=== PATIENT | male | born 1955 | race Caucasian/White ===

== ENCOUNTER 2024-12-14 12:56 | Emergency (ER) | payer MEDICARE, MEDICAID, SELFPAY ==
[2024-12-14 12:57] VITALS: BP 113/67; PULSE 84; TEMP 38.3; O2SAT 95; BMI 21.5
--- NOTE | 2024-12-14 13:04 | XR_ITS ---
[address] [address] Patient Name: TRACEE GU MRN: [id number] date: 1955 Sex: M Assigned Patient Location: ER Current Patient Location: ED.MAIN Accession/Order Number: [id number] Exam Date: 12/14/2024 14:49 Report Date: 12/14/2024 14:50 At the request of: CRYSTAL WADE MD Procedure: XR elbow RT 2V 3 views right elbow INDICATION: Fall COMPARISON: Humerus x-ray 12/14/2024 FINDINGS/impression: Moderate to severe degenerative changes. No evidence of acute osseous abnormality. Mild soft tissue swelling. Impression dictated by: Damian Saldana M.D. 12/14/2024 2:50 PM Dictation Location: [place] [address] Electronically authenticated by: [id number] Y Date: 12/14/2024 14:50
--- NOTE | 2024-12-14 13:04 | XR_ITS ---
The [place] [id number] Patient Name: TRACEE GU MRN: [id number] date: 1955 Sex: M Assigned Patient Location: ER Current Patient Location: ED.MAIN Accession/Order Number: [id number] Exam Date: 12/14/2024 14:50 Report Date: 12/14/2024 14:51 At the request of: CRYSTAL WADE MD Procedure: XR forearm RT 2V Right forearm 2 views INDICATION: Fall COMPARISON: Forearm x-ray 06/28/2021 Findings/impression: No fractures or dislocation.. Degenerative changes at the level of the elbow and wrist noted. No radiopaque foreign body. Impression dictated by: Damian Saldana M.D. 12/14/2024 2:51 PM Dictation Location: [place] [address] Electronically authenticated by: [id number] Y Date: 12/14/2024 14:51
--- NOTE | 2024-12-14 13:04 | CT_ITS ---
The [address] [address] Patient Name: TRACEE GU MRN: [id number] date: 1955 Sex: M Assigned Patient Location: ER Current Patient Location: [facility] Accession/Order Number: [id number] Exam Date: 12/14/2024 14:52 Report Date: 12/14/2024 14:54 At the request of: CRYSTAL WADE MD Procedure: CT head/brain wo con CT BRAIN WITHOUT CONTRAST: CLINICAL HISTORY: fall COMPARISON: CT head 05/07/2020 TECHNIQUE: Contiguous axial unenhanced images were obtained through the brain. This CT exam was performed using one or more following dose reduction techniques: Automated exposure control, adjustment of the mA and/or kV according to patient size, or use of iterative reconstruction technique. FINDINGS: There is no evidence of midline shift, intra or extra-axial fluid collection, hemorrhage or CT evidence acute large vascular distribution stroke. Central involutional changes and esol-qs-pouuwbxy chronic small vessel ischemic disease is. Vascular calcifications. Anterior nasal bone lucencies likely chronic. Visualized intraorbital contents appear unremarkable. Visualized paranasal sinuses are clear. The surrounding soft tissues are normal. CT/CT head/brain wo con IMPRESSION: [id number] CHRONIC SMALL VESSEL CHANGES AND CENTRAL INVOLUTIONAL CHANGE. NO ACUTE INTRACRANIAL ABNORMALITY. Impression dictated by: Damian Saldana M.D. 12/14/2024 2:54 PM Dictation Location: [place] [address] Electronically authenticated by: [id number] Y Date: 12/14/2024 14:54
--- NOTE | 2024-12-14 13:04 | XR_ITS ---
The [address] [address] Patient Name: TRACEE GU MRN: [id number] date: 1955 Sex: M Assigned Patient Location: ER Current Patient Location: ED.MAIN Accession/Order Number: [id number] Exam Date: 12/14/2024 14:47 Report Date: 12/14/2024 14:49 At the request of: CRYSTAL WADE MD Procedure: XR humerus RT Right shoulder 3 views, humerus, 2 views INDICATION: Fall XR/XR shoulder RT min 2V IMPRESSION: None FINDINGS: Prior ORIF mid diaphysis humerus. Moderate severe degenerative changes glenohumeral joint. Calcific densities greater tuberosity may suggest hydroxyapatite deposition. Moderate AC joint degenerative change. Right lung apex clear. IMPRESSION: Moderate degenerate changes right shoulder. Prior ORIF right humerus appears intact. No acute osseous abnormality. Please see separate elbow dictation. Impression dictated by: Damian Saldana M.D. 12/14/2024 2:49 PM Dictation Location: [place] [address] Electronically authenticated by: [id number] Y Date: 12/14/2024 14:49
--- NOTE | 2024-12-14 13:04 | CT_ITS ---
The [address] [address] Patient Name: TRACEE GU MRN: [id number] date: 1955 Sex: M Assigned Patient Location: ER Current Patient Location: ED.MAIN Accession/Order Number: [id number] Exam Date: 12/14/2024 14:55 Report Date: 12/14/2024 14:57 At the request of: CRYSTAL WADE MD Procedure: CT cervical spine wo con CT CERVICAL SPINE WITHOUT CONTRAST: CLINICAL HISTORY: fall COMPARISON: None TECHNIQUE: Contiguous axial unenhanced images were obtained through the cervical spine. This CT exam was performed using one or more following dose reduction techniques: Automated exposure control, adjustment of the mA and/or kV according to patient size, or use of iterative reconstruction technique. FINDINGS: The entirety of T1 is not evaluated. Moderate severe degenerative disc space narrowing and byoz-ow-vudshvze spurring and osteophytosis C5-C7. Wvem-gi-aynjrifs degenerative changes involving the remaining disc spaces. There is moderate severe facet arthropathy identified C3-C5. Findings are greatest left C4-C5. No prevertebral soft tissue swelling. Upper lungs grossly clear. CT/CT cervical spine wo con IMPRESSION: Negative acute fracture or malalignment from C1 through C7. Multilevel degenerative change Impression dictated by: Damian Saldana M.D. 12/14/2024 2:57 PM Dictation Location: [place] [address] Electronically authenticated by: [id number] Y Date: 12/14/2024 14:57
--- NOTE | 2024-12-14 13:04 | XR_ITS ---
[place] [id number] Patient Name: TRACEE GU MRN: [id number] date: 1955 Sex: M Assigned Patient Location: ER Current Patient Location: ED.MAIN Accession/Order Number: [id number] Exam Date: 12/14/2024 14:47 Report Date: 12/14/2024 14:49 At the request of: CRYSTAL WADE MD Procedure: XR humerus RT Right shoulder 3 views, humerus, 2 views INDICATION: Fall XR/XR humerus RT IMPRESSION: None FINDINGS: Prior ORIF mid diaphysis humerus. Moderate severe degenerative changes glenohumeral joint. Calcific densities greater tuberosity may suggest hydroxyapatite deposition. Moderate AC joint degenerative change. Right lung apex clear. IMPRESSION: Moderate degenerate changes right shoulder. Prior ORIF right humerus appears intact. No acute osseous abnormality. Please see separate elbow dictation. Impression dictated by: Damian Saldana M.D. 12/14/2024 2:49 PM Dictation Location: [place] [address] Electronically authenticated by: [id number] Y Date: 12/14/2024 14:49
--- OUTSIDE RECORDS SUMMARY | 2024-12-14 13:05 | XMS_ITS | Encounter Summary ---
Author Organization [facility] Address [id number] [address] [place] [address] Care Team Providers Care Car Shifter Name Role Phone LoreRaghav rueda Primary Care Provider [phone] Encounter Details Date Type Department Care Team (Late st Contact Info) Description 02/01/2024 Orders Only [facility] [address] [place] [address] Kelle Knight RN Social History Tobacco Use Types Packs/Day Years Used Date Smoking Tobacco: Former Cigarettes 1 4 Smokeless Tobacco: Never Alcohol Use Standard Drinks/Week Comments Not Currently 0 (1 standard drink = 0.6 oz pur e alcohol) alcoholic C Utilities Answer Date Recorded In the past 12 months has [employer] electric, gas, oil, or water [employer] threatened to shut off services in your home? No 10/12/2023 Social Connection and Isolat ion Panel [NHANES] Answer Date Recorded In a typical week, how many times do you talk on the phone with family, friends, or neighbors? Never 10/10/2023 How often do you get togethe r with friends or relatives? More than three times a week 10/10/2023 How often do you attend chur ch or hoahaoism services? More than 4 times per year 10/10/2023 Do you belong to any clubs o r organizations such as bahai groups, unions, fraternal or athletic groups, or school groups? No 10/10/2023 How often do you attend meet ings of the clubs or organizations you belong to? Never 10/10/2023 Are you , , di vorced, , never , or living with a partner? 10/10/2023 AUDIT-C Answer Date Recorded Q1: How often do you have a drink containing alcohol? Never 10/10/2023 Q2: How many drinks containi ng alcohol do you have on a typical day when you are drinking? Patient does not drink Q3: How often do you have si x or more drinks on one occasion? Never 10/10/2023 Overall Financial Resource Strain (CARDIA) Answe r Date Recorded How hard is it for you to pa y for the very basics like food, housing, medical care, and heating? Not hard at all 10/10/2023 PHQ-2 Answer Date Recorded Total Score 1 10/10/2023 [facility] - Occupational Stress Questionnaire Answer Date Recorded Do you feel stress - tense, restless, nervous, or anxious, or unable to sleep at night because your mind is troubled all the time - these days? Not at all 10/10/2023 Exercise Vital Sign Answer Date Recorde d On average, how many days pe r week do you engage in moderate to strenuous exercise (like a brisk walk)? 5 days 10/10/2023 On average, how many minutes do you engage in exercise at this level? 30 min 10/10/2023 PRAPARE - Transportation Answer Date Re corded In the past 12 months, has l ack of transportation kept you from medical appointments or from getting medications? No 09/26 In the past 12 months, has l ack of transportation kept you from meetings, work, or from getting things needed for daily living? No 10/12/2023 Housing Instability Answer Date Recorde d Are you worried or concerned that in the next two months you may not have stable housing that you own, rent or stay in as a part of a household? No 10/12/2023 Childcare Answer Date Recorded Do problems getting child ca re make it difficult for you to work or study? No 10/10/2023 Employment Answer Date Recorded Do you need help finding a [facility] and/or a training program? No 10/10/2023 Hunger Screening Answer Date Recorded Within the past 12 months we worried whether our food would run out before we got money to buy more. Never True 10/25/2023 Within the past 12 months th e food we bought just didn't last and we didn't have money to get more. Never True 10/25/2023 Purpose - Life Answer Date Recorded I have a purpose and direction in my life. Stron gly Agree 10/10/2023 Sex and Gender Information Value Date Recorded Sex Assigned at Male 10/10/2023 10:20 AM EDT Legal Sex Male 11:32 AM EDT Gender Identity Male 10/10/2023 10:20 AM EDT Sexual Orientation Straight 10/10/2023 10 :20 AM EDT documented as of this encounter Plan of Treatment Not on file documented as of this encounter Goals Goal Patient Goal Type Associated Problems Recent Progress Patient-Stated? Author RTN to [facility] Yes Monica Lee, RN Note: Evaluation of progress towards goal: RTN to [facility] documented as of this encounter Visit Diagnoses Not on filedocumented in this encounter Additional Health Concerns Assessment Noted Time PHQ-9 Depression Total Score: 1 10/10/19 10:27 AM EDT documented as of this encounter Care Teams Car Shifter Relationship Specialty Start Date End Date Raghav Dukes DO [address] [place] [address] PCP - General Family Medicine 10/05/23 documented as of this encounter
--- OUTSIDE RECORDS SUMMARY | 2024-12-14 13:05 | XMS_ITS | Clinical Summary ---
Author Organization [facility] Address [address] [place] [address] Care Team Providers Care Carton Folder Name Role Phone Evens Ross DO, Charles Lewis Primary Care Provi belen Active Problems Problem Noted Date Diagnosed Date Type II or unspecified type diabetes mellitus with neurological manifestations, uncontrolled(250.62) 02/19/2015 Neuropathy 08/15/2014 Depression 05/16/2014 PVD (peripheral vascular disease) 05/16/2014 HTN (hypertension) 05/16/2014 Social History Tobacco Use Types Packs/Day Years Used Date Smoking Tobacco: Never Assessed Sex and Gender Information Value Date Recorded Sex Assigned at Not on file Legal Sex Male 4:00 PM EDT Gender Identity Not on file Sexual Orientation Not on file Last Filed Vital Signs Vital Sign Reading Time Taken Comments Blood Pressure 102/58 10/10/2014 3:37 PM EDT Pulse 78 10/10/2014 3:37 PM EDT Temperature 36.3 C (97.4 F) 10/10/2014 3:37 PM EDT Respiratory Rate 18 10/10/2014 3:37 PM EDT Oxygen Saturation 96% 08/15/2014 3:07 PM EDT Inhaled Oxygen Concentration - - Weight - - Height - - Body Mass Index - - Plan of Treatment Not on file Insurance MEDICARE MEDICAID [place] Care Teams Carton Folder Relationship Specialty Start Date End Date Benigno Horner Jr., DO [address] [place] [id number] PCP - General Internal Medicine 10/16/13
--- OUTSIDE RECORDS SUMMARY | 2024-12-14 13:05 | XMS_ITS | Clinical Summary ---
Author Organization [employer] tem Address [facility] [id number] [address] [place] [address] Care Team Providers Care Azure Principal Solution Specialist Name Role Phone Roseline Raghav Tavera Primary Care Provider Allergies Active Allergy Reactions Criticality Noted Date Comments Bee Pollen 05/23/2022 Medications icosapent ethyL (VASCEPA) 1 gram capsule Take 2 capsules (2 g total) by mouth in the morning and 2 capsules (2 g total) in the evening. Take with meals. Active magnesium hydroxide (magnesium hydroxide) 400 mg/5 mL suspensionIndi cations:consti pation Take 30 mL by mouth every 12 (twelve) hours as needed Indications: constipation. Active ondansetron (ZOFRAN) 8 mg tablet Take by mouth every 8 (eight) hours as needed for nausea or vomiting. Active dextromethorph an-guaiFENesin (ROBITUSSIN-DM ) 10-100 mg/5 mL liquid Take 10 mL by mouth every 12 (twelve) hours as needed for cough. Active dulaglutide (TRULICITY) 0.75 mg/0.5 mL pen injectorIndica tions:type 2 diabetes mellitus Inject 2 mL (3 mg total) under the skin once a week Indications: type 2 diabetes mellitus. Inject 3mg subcutaneously in the morning every Monday Active multivit-iron- FA-calcium &mins (THERAGRAN-M) 9 mg iron-400 mcg tablet Take 1 tablet by mouth in the morning. Active aspirin 81 mg Take 1 tablet (81 mg total) by mouth in the morning. Active docusate sodium (COLACE) 100 mg capsule Take 1 capsule (100 mg total) by mouth in the morning and 1 capsule (100 mg total) before bedtime. Active melatonin (CIRCADIN) capsule Take 1 capsule (5 mg total) by mouth nightly. Active aluminum-magne sium hydroxide (MAALOX) 200-200 mg/5 mL suspension Take by mouth every 6 (six) hours as needed for heartburn. Active latanoprost (XALATAN) 0.005 % ophthalmic solution Administer 1 drop into the left eye nightly. Active empagliflozin (JARDIANCE) 25 mg tablet tablet Take 1 tablet (25 mg total) by mouth in the morning. Active gabapentin (NEURONTIN) 600 mg tablet Take 1 tablet (600 mg total) by mouth in the morning and 1 tablet (600 mg total) before bedtime. Active desvenlafaxine (PRISTIQ) 50 mg 24 hr tablet Take 1 tablet (50 mg total) by mouth in the morning. Active atorvastatin (LIPITOR) 10 mg tablet Take 1 tablet (10 mg total) by mouth in the morning. Active loperamide (IMODIUM A-D) 2 mg tablet Take 1 tablet (2 mg total) by mouth every 4 (four) hours as needed for diarrhea. Active lactulose (CHRONULAC) 10 gram/15 mL solutionIndica tions:constipa tion Take 30 mL (20 g total) by mouth in the morning. Indications: constipation. In the morning . Active lidocaine (LIDODERM) 5 % Place 1 patch on the skin daily. Remove & Discard patch within 12 hours or as directed by MD, apply to mid-back every 24 hours a needed Active olopatadine (PATADAY TWICE DAILY RELIEF) 0.1 % ophthalmic solution Administer 1 drop to both eyes in the morning and 1 drop before bedtime. Active metFORMIN (GLUCOPHAGE) 850 mg tablet Take 1 tablet (850 mg total) by mouth in the morning and 1 tablet (850 mg total) in the evening. Take with meals. Active folic acid (FOLVITE) 1 mg tablet Take 1 tablet (1 mg total) by mouth in the morning. 4 Active FREESTYLE DANA 2 READER misc 4 Active FREESTYLE DANA 2 SENSOR kit 4 Active acetaminophen (TYLENOL EXTRA STRENGTH) 500 mg tablet Take 1 tablet (500 mg total) by mouth every 6 (six) hours as needed for pain. Active Active Problems Problem Noted Date Diagnosed Date Low HDL (under 40) 09/22/2024 Other abnormalities of gait and mobility 024 Closed fracture of left hip with routine healing 10/10/2023 Degeneration of lumbar intervertebral disc 06/28 Chronic hepatitis C without hepatic coma 023 Encephalopathy, unspecified 05/23/2022 Essential hypertension, benign 05/23/2022 Cortex (cerebral) contusion, prolonged (more than 24 hours) loss of consciousness and return to pre-existing conscious level, unspecified laterality, subsequent encounter 05/23/2022 Abnormal prostate specific antigen (PSA) 017 Abnormal weight loss 06/07/2016 Alcohol abuse 06/07/2016 Chronic hepatitis 06/07/2016 Chronic pain 06/07/2016 Constipation 06/07/2016 Gastritis 06/07/2016 Headache 06/07/2016 Hyperlipidemia 06/07/2016 Hypertension associated with stage 3a chronic kidney disease due to type 2 diabetes mellitus 06/07/2016 Type 2 diabetes mellitus wit h stage 2 chronic kidney disease, without long-term current use of insulin ([facility]) 02/19/2015 Neuropathy 08/15/2014 Major depressive disorder 05/16/2014 PVD (peripheral vascular disease) 05/16/2014 Mild cognitive impairment Fatty liver Resolved Problems Problem Noted Date Diagnosed Date Resolved Date Closed left hip fracture 10/11/2023 Encounters Date Type Department Care Team Description 11/15/2024 Continuing Care [facility] - Family Medicine [address] [place] [address] Raghav Dukes DO Hypertension associated with stage 3a chronic kidney disease due to type 2 diabetes mellitus ([facility]) (Primary Dx); Degeneration of intervertebral disc of lumbar region with discogenic back pain 10/16/2024 Continuing Care [facility] - Family Medicine [address] [place] [address] Raghav Dukes DO Hypertension associated with stage 3a chronic kidney disease due to type 2 diabetes mellitus ([facility]) (Primary Dx); Chronic hepatitis C without hepatic coma ([facility]); Closed fracture of left hip with routine healing; Encephalopathy, unspecified type from Last 3 Months Immunizations No known immunizations Social History Tobacco Use Types Packs/Day Years Used Date Smoking Tobacco: Former Cigarettes 1 4 Smokeless Tobacco: Never Tobacco Cessation:Counseling Given: Not Answered Alcohol Use Standard Drinks/Week Comments Not Currently 0 (1 standard drink = 0.6 oz pur e alcohol) alcoholic [facility] Utilities Answer Date Recorded In the past 12 months has th e electric, gas, oil, or water company threatened to shut off services in your [...] 10/10/2023 How often do you attend chur or rastafarian services? More than 4 times per year 10/10/2023 Do you belong to any clubs o r organizations such as islam groups, unions, fraternal or athletic groups, or [...] Answer Date Recorded Total Score 1 10/10/2023 [facility] - Occupational Stress [...] Recorded Do you need help finding a [facility] career center and/or a training program? No 10/10/2023 Hunger Screening Answer Date Recorded Within the past 12 months we worried whether our food would run out before we got money to buy more. Never True 07/03/2024 Within the past 12 months th e food we bought just didn't last and we didn't have money to get more. Never True 07/03/2024 Purpose - Life Answer Date Recorded I have a purpose and direction in my life. Bea gly Agree 10/10/2023 Sex and Gender Information Value Date Recorded Sex Assigned at Male 10/10/2023 10:20 AM EDT Legal Sex Male 11:32 AM EDT Gender Identity Male 10/10/2023 10:20 AM EDT Sexual Orientation Straight 10/10/2023 10 :20 AM EDT Last Filed Vital Signs Vital Sign Reading Time Taken Comments Blood Pressure 107/72 11/15/2024 4:56 PM EDT Pulse 70 11/15/2024 4:56 PM EDT Temperature 37 C (98.6 F) 11/15/2024 4:56 PM EDT Respiratory Rate 18 11/15/2024 4:56 PM EDT Oxygen Saturation 98% 11/15/2024 4:56 PM EDT Inhaled Oxygen Concentration - - Weight 64.9 kg (143 lb) 11/15/2024 4:56 PM EDT Height 167.6 cm (5' 6 ) 07/03/2024 1:28 PM EST Body Mass Index 23.08 07/03/2024 1:28 PM EST Plan of Treatment Health Maintenance Due Date Last Done Comments Diabetic Ophthalmology Exam 1955 Diabetic Foot Exam 12/22/1973 DTaP,Tdap and Td Vaccines (1 - Tdap) 12/22/1974 Zoster (Shingles) Vaccine (1 of 2) 12/22/2005 Abdominal Aortic Aneurysm (A AA) Screen 12/22/2020 Fall Risk Screening 12/22/2020 COVID-19 Vaccine (7 - 2023-2 5 season) 2024 03/13/2024, 11/10/2022, 01/12/2022, Additional history exists Depression Screening 10/09/2024 10/10/2023 Influenza Vaccine 01/27/2025 03/27/2024 Tobacco Screening 07/03/2025 07/03/2024 Adult BMI Screening 11/15/2025 11/15/2024 Goals Goal Patient Goal Type Associated Problems Recent Progress Patient-Stated? Author RTN to [facility] Yes Monica Lee, RN Note: Evaluation of progress towards goal: RTN to [facility] [employer] Implanted Type Area Superintendent Distribution Device Identifier Shelf Expiration Date Model / Serial / Lot Nail Im 170mm 10mm 125d Cnn Tfn-Adv Lat Rlf Cut Ti Niobium - [id number] Implanted:Qty : 1 on 10/12/2023 by Cipriano Castillo MD at [facility] Nail Left: Femur DEPUY Watson Brown 10/26/2032 04.037.01 2S / / [id number] Blade Im Nl Au 95mm 10.35mm Tfn-Adv Hlcl Fem Prox Ti Niobium - [id number] Implanted:Qty : 1 on 10/12/2023 by Cipriano Castillo MD at [facility] Orthopedic Implant Left: Femur DEPUY Watson Brown 07/26/2033 04.038.39 5S / / [id number] Screw Bn 36mm 5mm Lck X25 Im Nl - [id number] Implanted:Qty : 1 on 10/12/2023 by Cipriano Castillo MD at [facility] Screw Left: Femur [employer] 03/28/2033 04.045.03 6S / / [id number] Insurance MEDICAID [place] [employer] MEDICARE Advance Directives Documents on File Type Date Recorded Patient E Business Project Manager Expl anation Durable Power of Drafter [employer] 11/09/2023 8:54 AM DNR Physician Order 11/09/2023 8:39 AM DNR Physician Order 10/27/2023 9:55 AM DNR Physician Order 10/26/2023 1:21 PM Durable Power of [employer] 10/26/2023 8:12 AM * Full Code (Latest Code Status on File) Date Activated Date Inactivated Comments 10/11/2023 2:54 PM 10/15/2023 6:51 PM * Full Code Date Activated Date Inactivated Comments 10/10/2023 4:17 AM 10/11/2023 2:40 PM Care Teams Azure Principal Solution Specialist Relationship Specialty Start Date End Date Raghav Dukes DO [address] [place] [address] PCP - General Family Medicine 10/05/23
--- OUTSIDE RECORDS SUMMARY | 2024-12-14 13:05 | XMS_ITS | Encounter Summary ---
[facility] Organization [id number] [address] [place] [address] Care Team Providers Care Steaming Machine Operator Name Role Phone LoreRaghav rueda Primary Care Provider [phone] Encounter Details Date Type Department Care Team (Late st Contact Info) Description 06/25/2024 Orders Only [facility]Trauma [facility] Adult [facility] [address] [place] [address] Kelle Knight RN Social History Tobacco Use Types Packs/Day Years Used Date Smoking Tobacco: Former Cigarettes 1 4 Smokeless Tobacco: Never Alcohol Use Standard Drinks/Week Comments Not Currently 0 (1 standard drink = 0.6 oz pur e alcohol) alcoholic C Utilities Answer Date Recorded In the past 12 months has [employer], gas, oil, or water [employer] threatened to shut off services in your [...] often do you attend chur ch or tenriism services? More than 4 times per year 10/10/2023 Do you belong to any clubs o r organizations such as orthodoxy groups, unions, fraternal or athletic groups, or [...] Answer Date Recorded Total Score 1 10/10/2023 [facility] - Occupational [...] Recorded Do you need help finding a [facility] and/or a training program? [...] Problems Recent Progress Patient-Stated? Author RTN to [place] [facility] Yes Monica Lee, RN Note: Evaluation of progress towards goal: RTN to [place] documented as of this encounter Visit Diagnoses Not on filedocumented in this encounter Additional Health Concerns Assessment Noted Time PHQ-9 Depression Total Score: 1 10/10/19 10:27 AM EDT documented as of this encounter Care Teams Steaming Machine Operator Relationship Specialty Start Date End Date Raghav Dukes DO [address] [place] [address] PCP - General Family Medicine 10/05/23 documented as of this encounter
--- OUTSIDE RECORDS SUMMARY | 2024-12-14 13:05 | XMS_ITS | Encounter Summary ---
Author Organization [facility] Click Contact [facility] tem Address [id number] [address] [place] [address] Care Team Providers Care Medical Services Assistant Name Role Phone LoreRaghav rueda Primary Care Provider [phone] Encounter Details Date Type Department Care Team (Late st Contact Info) Description 02/20/2023 Orders Only [facility] Internal Medicine - Family Medicine [address] [place] [id number] External, Scanning Provider Social History Tobacco Use Types Packs/Day Years Used Date Smoking Tobacco: Former Cigarettes 1 4 Smokeless Tobacco: Never Alcohol Use Standard Drinks/Week Comments Not Currently 0 (1 standard drink = 0.6 oz pur e alcohol) alcoholic Childcare Answer Date Recorded Childcare Unknown 11/07/2018 Employment Answer Date Recorded Employment Unknown 11/07/2018 Sex and Gender Information Value Date Recorded Sex Assigned at Male 10/10/2023 10:20 AM EDT Legal Sex Male 11:32 AM EDT Gender Identity Male 10/10/2023 10:20 AM EDT Sexual Orientation Straight 10/10/2023 10 :20 AM EDT documented as of this encounter Plan of Treatment Not on file documented as of this encounter Procedures Procedure Name Priority Date/Time Associated Diagnosis Comments HEPATITIS C(HCV) ANTIBODY W/REFLEX TO PCR Routine 02/20/2023 10:58 AM EDT documented in this encounter Results * Hepatitis C(HCV) Ab w/ Reflex to PCR (02/20/2023 10:58 AM EDT) us Scanning Provider External LAB BLOOD ORDERABLES Final Result MANUALLY TRANSCRIBED RESULTS documented in this encounter Visit Diagnoses Not on filedocumented in this encounter Care Teams Medical Services Assistant Relationship Specialty Start Date End Date Raghav Dukes DO [address], [facility] [address] PCP - General Family Medicine 10/05/23 documented as of this encounter
--- NOTE | 2024-12-14 13:08 | ED_ITS ---
HPI HPI - General Adult General Chief complaint: Fall Stated complaint: FALL Time Seen by Provider: 12/14/24 13:04 Source: medical record Mode of arrival: ambulance Limitations: no limitations History of Present Illness HPI narrative: The patient is 68-year-old male is coming to us from senior living facility, he have a history of a traumatic brain injury and that why he is in the senior living facility, he mentioned that he tripped and fell forward and apparently according to the EMS who brought him to the ER there was some deformity in the right elbow, although the patient is not complaining of any right elbow pain The patient mentioned that he did hit his head and is complaining of some headache ,he also had complained of some neck pain no numbness no tingling down his arm and there is no weakness He had bilateral knee abrasion Related Data Allergies Allergy/AdvReac Type Severity Reaction Status Date / Time bee venom protein (honey bee) Allergy Severe Rash Verified 12/14/24 13:04 Opioid HPI Opioid Management Most Recent Opioid Data: Last Pain Scale 2 Today, 13:10 Last MAR Pain Assessment Today, 13:28 Review of Systems ROS Status of ROS 10 or more systems reviewed and unremark able except as noted in history and below Exam Narrative Exam Narrative: Nurses notes and vital signs reviewed and patient is not hypoxic. General: Well-appearing and in no apparent distress. Skin: Warm, dry, no pallor noted. No rash. Head: Normocephalic, atraumatic. Neck: Neck collar in place Eye: Pupils are equal, round and EOMI. No scleral icterus. Cardiovascular: Regular Rate and Rhythm without murmur, gallop or rub. Respiratory: No accessory muscle use or respiratory distress. Lungs are clear to auscultation, no wheezing, rales or rhonchi Chest Wall: no tenderness Back: No midline thoracic or lumbar vertebral tenderness. No CVA tenderness Musculoskeletal: The patient have scarring previous surgery in the right shoulder as well as right arm there is no tenderness palpation of the right elbow and no obvious deformity but there is chronic skin changes due to the previous surgery and the patient have a normal radial pulse in the right side GI: Abdomen is soft, non-distended. Normal bowel sounds. No masses appreciated. No tenderness to palpation. No rebound, guarding, or rigidity noted. Psychiatric: Cooperative and interactive. Normal mood and affect. Constitutional Vital Signs, click to edit/add: Last Vital Signs Temp 98.5 F 12/14/24 14:31 Pulse 87 12/14/24 14:56 Resp 14 12/14/24 14:56 BP 104/74 12/14/24 14:56 Pulse Ox 95 12/14/24 14:56 O2 Del Method Room Air 12/14/24 14:56 Course Vital Signs Vital signs: Vital Signs Temperature 100.9 F H 12/14/24 12:57 Pulse Rate 84 12/14/24 12:57 Respiratory Rate 16 12/14/24 12:57 Blood Pressure 113/67 12/14/24 12:57 Pulse Oximetry 95 12/14/24 12:57 Oxygen Delivery Method Room Air 12/14/24 12:57 Temperature 98.5 F 12/14/24 14:31 Pulse Rate 87 12/14/24 14:56 Respiratory Rate 14 12/14/24 14:56 Blood Pressure 104/74 12/14/24 14:56 Pulse Oximetry 95 12/14/24 14:56 Oxygen Delivery Method Room Air 12/14/24 14:56 Medical Decision Making MDM Narrative Medical decision making narrative: The patient did complain of right-sided pain in his pectoral area and right shoulder area after he was evaluated initially which he initially mentioned that it was chest pain but when I clarified he pointed to his right shoulder and pectoral area. The pain is mostly related to the right arm movement according to the patient The patient CT of the head as well as CT cervical spine showed no acute pathology He was provided with Percocet for pain control in the ED in addition to also Toradol The patient also had x-ray of the right shoulder elbow and right forearm and there was no acute pathology detected Patient was discharged home to continue supportive care with Tylenol The patient is to follow up with primary care physician in next 2-3 days or to return to the emergency department should any of the signs or symptoms worsen or new symptoms develop. The patient agrees with the following Diagnosis and Treatment plan and the patient will be discharged home. Discharge Plan Discharge Chief Complaint: Fall Clinical Impression: Fall, Head trauma Patient Disposition: Home, Self-Care Time of Disposition Decision: 15:03 Condition: Good Print Language: East Timorese Instructions: Fall Prevention (ED) Referrals: Physician,Non-Staff, MD [Primary Care Provider] - 1 week
[2024-12-14] MEDS: OXYCODONE HCL/ACETAMINOPHEN 5MG/325MG 1 TAB PO (13:28)
[2024-12-14 14:31] VITALS: PULSE 68; TEMP 36.9; O2SAT 96
[2024-12-14] MEDS: KETOROLAC TROMETHAMINE 30 MG/ML VIAL 15 MG IVP (14:47)
[2024-12-14 14:56] VITALS: BP 104/74; PULSE 87; O2SAT 95
[2024-12-14 15:41] VITALS: PULSE 69; TEMP 37.1; O2SAT 95
== END 2024-12-14 15:46 | disposition home or self-care (01) ==
PROVIDERS: Emergency Provider Emergency Medicine
DX: S09.90XA Unspecified injury of head, initial encounter (principal); Z87.820 Personal history of traumatic brain injury; S80.212A Abrasion, left knee, initial encounter; S80.211A Abrasion, right knee, initial encounter; W01.0XXA Fall on same level from slipping, tripping and stumbling without subsequent striking against object, initial encounter
CPT/HCPCS: 70450; 72125; 73030; 73060; 73070; 73090; 96374; 99285; J1885

== ENCOUNTER 2025-05-28 13:24 | Outpatient (OUT) | payer MEDICARE, MEDICAID, SELFPAY ==
--- OUTSIDE RECORDS SUMMARY | 2025-05-28 13:29 | XMS_ITS | Clinical Summary ---
Author Organization [facility] Address [address] [place] [address] Care Team Providers Care Acupressure Therapist Name Role Phone Evens Ross DO, Charles Lewis Primary Care Provi belen Active Problems ProblemNoted DateDiagnosed DateType II or unspecified type diabetes mellitus with neurological manifestations, uncontrolled(250.62)02/19/2015Neuropathy 08/15/20142099Upuchycsgs11/19/2014PVD (peripheral vascular disease)05/16/2014HTN (hypertension)05/16/2014 Social History Tobacco UseTypesPacks/DayYears UsedDateSmoking Tobacco: Never AssessedSex and Gender InformationValueDate RecordedSex Assigned at BirthNot on fileLegal Sex Male10/15/2013 4:00 PM EDTGender IdentityNot on fileSexual OrientationNot on file Last Filed Vital Signs Vital SignReadingTime TakenCommentsBlood Ytyesjfa068/58010/10/2014 3:37 PM EDT Eabug237210/10/2014 3:37 PM ITRLhshegjcmzr20.3 ??C (97.4 ??F)10/10/2014 3:37 PM EDTRespiratory Iguy197110/10/2014 3:37 PM EDTOxygen Sdbwmgfbvb89%08/15/2014 3:07 PM EDTInhaled Oxygen Concentration--Weight--Height--Body Mass Index-- Plan of Treatment Not on file Insurance Care Teams Team MemberRelationshipSpecialtyStart DateEnd Date Benigno Horner Jr., DO [address] [place] [address] PCP - GeneralInternal Medicine10/16/13
--- OUTSIDE RECORDS SUMMARY | 2025-05-28 13:30 | XMS_ITS | Clinical Summary ---
Author Organization [employer] tem Address [id number] [address] [place] [address] Care Team Providers Care Furnace Hand Name Role Phone RoselineRaghav Primary Care Provider Allergies Active AllergyReactionsCriticalityNoted DateCommentsBee Djkgpi9205/23/2022 Medications MedicationSigDispense QuantityRefillsLast FilledStart DateEnd DateStatus icosapent ethyL (VASCEPA) 1 gram capsule Take 2 capsules (2 g total) by mouth in the morning and 2 capsules (2 g total) in the evening. Takewith meals.Active magnesium hydroxide (magnesium hydroxide) 400 mg/5 mL suspension Indications:constipationTake 30 mL by mouth every 12 (twelve) hours as needed Indications: constipation.Active ondansetron (ZOFRAN) 8 mg tablet Take by mouth every 8 (eight) hours as needed for nausea or vomiting.Active dextromethorphan-guaiFENesin (ROBITUSSIN-DM) 10-100 mg/5 mL liquid Take 10 mL by mouth every 12 (twelve) hours as needed for cough.Active dulaglutide (TRULICITY) 0.75 mg/0.5 mL pen injector Indications:type 2 diabetes mellitusInject 2 mL (3 mg total) under the skin once a week Indications: type 2 diabetes mellitus. Inject 3mg subcutaneously in the morning every MondayActive dqwlhdki-ehxt-PX-calcium &mins (THERAGRAN-M) 9 mg iron-400 mcg tablet Take 1 tablet by mouth in the morning.Active aspirin 81 mg Take 1 tablet (81 mg total) by mouth in the morning.Active docusate sodium (COLACE) 100 mg capsule Take 1 capsule (100 mg total) by mouth in the morning and 1 capsule (100 mg total) before bedtime.Active melatonin (CIRCADIN) capsule Take 1 capsule (5 mg total) by mouth nightly.Active aluminum-magnesium hydroxide (MAALOX) 200-200 mg/5 mL suspension Take by mouth every 6 (six) hours as needed for heartburn.Active latanoprost (XALATAN) 0.005 % ophthalmic solution Administer 1 drop into the left eye nightly.Active empagliflozin (JARDIANCE) 25 mg tablet tablet Take 1 tablet (25 mg total) by mouth in the morning.Active gabapentin (NEURONTIN) 600 mg tablet Take 1 tablet (600 mg total) by mouth in the morning and 1 tablet (600 mg total) before bedtime.Active desvenlafaxine (PRISTIQ) 50 mg 24 hr tablet Take 1 tablet (50 mg total) by mouth in the morning.Active atorvastatin (LIPITOR) 10 mg tablet Take 1 tablet (10 mg total) by mouth in the morning.Active loperamide (IMODIUM A-D) 2 mg tablet Take 1 tablet (2 mg total) by mouth every 4 (four) hours as needed for diarrhea. Active lactulose (CHRONULAC) 10 gram/15 mL solution Indications:constipationTake 30 mL (20 g total) by mouth in the morning. Indications: constipation. In the morning .Active lidocaine (LIDODERM) 5 % Place 1 patch on the skin daily. Remove & Discard patch within 12 hours or as directed by MD, apply to mid-back every 24 hours a neededActive olopatadine (PATADAY TWICE DAILY RELIEF) 0.1 % ophthalmic solution Administer 1 drop to both eyes in the morning and 1 drop before bedtime.Active metFORMIN (GLUCOPHAGE) 850 mg tablet Take 1 tablet (850 mg total) by mouth in the morning and 1 tablet (850 mg total) in the evening. Take with meals.Active folic acid (FOLVITE) 1 mg tablet Take 1 tablet (1 mg total) by mouth in the morning.10/15/2023ctive FREESTYLE DANA 2 READER misc 09/07/2023ctive FREESTYLE DANA 2 SENSOR kit 02/08/2024ctive acetaminophen (TYLENOL EXTRA STRENGTH) 500 mg tablet Take 1 tablet (500 mg total) by mouth every 6 (six) hours as needed for pain. Active Active Problems ProblemNoted DateDiagnosed DateLow HDL (under 40)09/22/2024Other abnormalities of gait and teizwudw77/05/2024losed fracture of left hip with routine healing 10/10/2023egeneration of lumbar intervertebral disc06/28/2022hronic hepatitis C without hepatic coma06/05/2022Encephalopathy, pdfenxonlnx77/26/2022Essential hypertension, csdnuu6705/23/2022ortex (cerebral) contusion, prolonged (more than 24 hours) loss of consciousness and return to pre-existing conscious level, unspecified laterality, subsequent zkykyohnn11/26/2022bnormal prostate specific antigen (PSA)06/07/2016Abnormal weight loss06/07/2016Alcohol abuse06/07/2016 Chronic ldhfsjzap62/10/2017Chronic pain06/07/20161146Ghxhescypaxi49/10/2017Gastritis 06/07/20167583Eogiskoi13/10/5054Qtmenyveakdzla36/10/2017Hypertension associated with stage 3a chronic kidney disease due to type 2 diabetes idrpbvnl95/10/2017Type 2 diabetes mellitus with stage 2 chronic kidney disease, without long-term current use of ognlrbj9202/19/20151131Ycgfbmtqaa16/20/2015Major depressive jhrgxzpu42/19/2014 PVD (peripheral vascular disease)05/16/2014Mild cognitive impairmentFatty liver Resolved Problems ProblemNoted DateDiagnosed DateResolved DateClosed left hip nmwvohuo28/15/2024 10/16/2024 Encounters DateTypeDepartmentCare JkhdReyorsbahrb54/28/2025Continuing Care [facility] Internal Medicine - Family Medicine [address] [place] [address] Raghav Dukes, Hypertension associated with stage 3a chronic kidney disease due to type 2 diabetes mellitus ([facility]-HCC) (Primary Dx); Chronic hepatitis C without hepatic coma ([facility]-HCC); Hypotension, unspecified hypotension type; Anemia, unspecified type04/07/20253938Itaewb98/24/2025Continuing Care [facility] - Family Medicine [address] [place] [address] Raghav Dukes, Type 2 diabetes mellitus with stage 2 chronic kidney disease, without long-term current use of insulin (CMS-HCC) (Primary Dx); Chronic hepatitis C without hepatic coma (CMS-HCC); Essential hypertension, benign; Mixed hyperlipidemia; Low HDL (under 40)from Last 3 Months Immunizations No known immunizations Social History Tobacco UseTypesPacks/DayYears UsedDateSmoking Tobacco: HeiahdDamjqlyyco55 Smokeless Tobacco: Never Tobacco Cessation:Counseling Given: Not Answered Alcohol UseStandard Drinks/WeekCommentsNot Currently0 (1 standard drink = 0.6 oz pure alcohol) alcoholic [facility] UtilitiesAnswerDate RecordedIn the past 12 months has the [employer], gas, oil, or water [employer] threatened to shut off services in your home?No10/12/2023Social Connection and Isolation PanelAnswerDate RecordedIn a typical week, how many times do you talk on the phone with family, friends, or neighbors?Never10/10/2023How often do you get together with friends or relatives?More than three times a week10/10/2023How often do you attend jainism or episcopalian services?More than 4 times per year10/10/2023o you belong to any clubs or organizations such as jainism groups, unions, fraternal or athletic hasmukh ups, or school groups?No10/10/2023How often do you attend meetings of the clubs or organizations you belong to?Never10/10/2023re you , , , , never , or living with a partner?Reqepobs16/14/2024 AUDIT-CAnswerDate RecordedQ1: How often do you have a drink containing alcohol? Never10/10/2023Q2: How many drinks containing alcohol do you have on a typical day when you are drinking?Patient does not drink10/10/2023Q3: How often do you have six or more drinks on one occasion?Never10/10/2023Overall Financial Resource Strain (CARDIA)AnswerDate RecordedHow hard is it for you to pay for the very basics like food, housing, medical care, and heating?Not hard at all 10/10/2023HQ-2AnswerDate RecordedTotal Lmgbc518Finmountainstar healthcare [place] of Occupational [facility] - Occupational Stress QuestionnaireAnswerDate RecordedDo you feel stress - tense, restless, nervous, or anxious, or unable to sleep at night because yourmind is troubled all the time - these days?Not at all10/10/2023 Exercise Vital SignAnswerDate RecordedOn average, how many days per week do you engage in moderate to strenuous exercise (like a brisk walk)?5 days10/10/2023On average, how many minutes do you engage in exercise at this level?30 min 10/10/2023RAPARE - TransportationAnswerDate RecordedIn the past 12 months, has lack of transportation kept you from medical appointments or from getting medications?No10/12/2023In the past 12 months, has lack of transportation kept you from meetings, work, or from getting things needed for daily living?No 10/12/2023Housing InstabilityAnswerDate RecordedAre you worried or concerned that in the next two months you may not have stable housing that you own, rent or stay in as a part of a household?No10/12/2023hildcareAnswerDate RecordedDo problems getting children's counselor make it difficult for you to work or study?No 10/10/2023EmploymentAnswerDate RecordedDo you need help finding a local career center and/or a training program?No10/10/2023Hunger ScreeningAnswerDate Recorded Within the past 12 months we worried whether our food would run out before we got money to buy more.Never True07/03/2024Within the past 12 months the food we bought just didn't last and we didn't have money to get more.Never True 07/03/2024Purpose - LifeAnswerDate RecordedI have a purpose and direction in my life.Strongly Agree10/10/2023Sex and Gender InformationValueDate RecordedSex Assigned at AkdnhSlnj33/14/2024 10:20 AM EDTLegal LygWryy2201/01/2015 11:32 AM EDT Gender FfkuazxgFdba69/14/2024 10:20 AM EDTSexual MlgnbkraktqVjrndjuy36/14/2024 10:20 AM EDT Last Filed Vital Signs Vital SignReadingTime TakenCommentsBlood Rynrerpq056/6311 2:44 PM EST Zemun2721 2:44 PM UDGMzscmxjkdni43.5 ??C (97.7 ??F)04/25/2025 2:44 PM ESTRespiratory Wdah0982 2:44 PM ESTOxygen Udejurksvb23%04/25/2025 2:44 PM ESTInhaled Oxygen Concentration--Xfxoyz31.2 kg (130 lb 9.6 oz)04/25/2025 2:44 PM MVPKbsmzb656.6 cm (5' 6 )07/03/2024 1:28 PM ESTBody Mass Index21.0807/03/2024 1:28 PM EST Plan of Treatment Health MaintenanceDue DateLast DoneCommentsDiabetic Ophthalmology Exam1955 Statin Use: Tbccjqag84/27/1956Diabetic Foot Exam12/22/1973DTaP,Tdap and Td Vaccines (1 - Tdap)12/22/1974RSV ( or age 60+ yrs) (1 - Risk 50-74 years 1-dose series)12/22/2005Zoster (Shingles) Vaccine (1 of 2)12/22/2005bdominal Aortic Aneurysm (AAA) Mzstat8512/22/2020Fall Risk Cpayprunn98/27/2021epression Ibgsonhuv51/4COVID-19 Vaccine ( season)2025 03/13/2024, 11/10/2022, 01/12/2022, Additional history existsInfluenza Vaccine /4Adult BMI Tvoarpkne22Tobacco Screening Goals GoalPatient Goal TypeAssociated ProblemsRecent ProgressPatient-Stated?Author RTN to [place] Monica Jones, RN Note: Evaluation of progress towards goal: RTN to [place] [employer] ImplantedTypeAreaManufacturerDevice IdentifierShelf Expiration DateModel / Serial / LotNail Im 170mm 10mm 125d Cnn Tfn-Adv Lat Rlf Cut Ti Niobium - [id number] Implanted:Qty: 1 on 10[facility]12[facility] FemurDEPUY SYNTHES .037.012S / / [id number] Im Nl Au 95mm 10.35mm Tfn-Adv Hlcl Fem Prox Ti Niobium - [id number] Implanted:Qty: 1 on 10/12/2023 [facility]plantLeft: FemurDEPUY SYNTHES .038.395S / / [id number] Bn 36mm 5mm Lck X25 Im Nl - [id number] Implanted:Qty: 1 on 10/12/2023 by [facility]: FemurDEPUY SYNTHES .045.036S / / [id number] Procedures Procedure NamePriorityDate/TimeAssociated DiagnosisCommentsAMMONIARoutine 04/07/2025 1:48 PM EST Hepatitis C Fatty liver Medication management from Last 3 Months Results * Ammonia (04/07/2025 1:48 PM EST)ComponentValueRef RangeTest MethodAnalysis TimePerformed AtPathologist JcjuohrokQACYTOT2108 - 35 umol/L106/07/2024 2:15 PM ESTPROMEDICA HEALTHBRIDGE CHILDREN'S REHABILITATION HOSPITALpecimen (Source)Anatomical Location / LateralityCollection Method / VolumeCollection TimeReceived TimeBloodVenous blood / UnknownVenipuncture / Akehbgr0804/07/2025 1:48 PM EST04/07/2025 1:50 PM EST Narrative Authorizing ProviderResult TypeResult StatusEmjamshid Radha Rodriguez RAW STOCK MACHINE LOADER-CNPLAB BLOOD ORDERABLESFinal ResultPerforming OrganizationAddressCity/State/ZIP Code Phone Number [facility] [address] [place] [address], from Last 3 Months Insurance Advance Directives TypeDate RecordedPatient RepresentativeExplanationDurable Power of Zoning Administrator 11/09/2023 8:54 AMDNR Physician Order11/09/2023 8:39 AMDNR Physician Order 10/27/2023 9:55 AMDNR Physician Order10/26/2023 1:21 PMDurable Power of Zoning Administrator 10/26/2023 8:12 AM * Full Code (Latest Code Status on File) Date ActivatedDate InactivatedComments10/11/2023 2:54 PM10/15/2023 6:51 PM * Full Code Date ActivatedDate InactivatedComments10/10/2023 4:17 AM10/11/2023 2:40 PM Care Teams Team MemberRelationshipSpecialtyStart DateEnd Date Raghav Dukes DO [address] [facility], [place] [address] PCP - GeneralFamily Medicine10/05/23
[2025-05-28 14:04] LABS: Hematocrit 42.0 % (42.0-54.0); Hemoglobin 13.6 g/dL (14.0-18.0); Immature Granulocytes Abs Auto 0.05 10^3/uL (0.00-0.03); Immature Granulocytes Pct Auto 0.6 % (0.0-0.5); Lymphocytes Absolute Auto 2.2 10^3/uL (1.2-3.8); Mean Corpuscular HGB Conc 32.4 g/dL (29.9-35.2); Mean Corpuscular Hemoglobin 30.5 pg (25.9-34.0); Mean Corpuscular Volume 94.2 fL (80.0-94.0); Platelet Count 272 10^3/uL (150-450); Red Blood Count 4.46 10^6/uL (4.70-6.10); White Blood Count 8.2 10^3/uL (4.0-11.0)
[2025-05-28 14:14] LABS: INR 1.08; Prothrombin Time 11.3 sec (9.0-11.6)
[2025-05-28 14:29] LABS: Alanine Aminotransferase 93 U/L (16-63); Albumin Globulin Ratio 0.7; Albumin Level 3.5 g/dL (3.4-5.0); Alkaline Phosphatase 107 U/L (46-116); Anion Gap 10.4; Aspartate Amino Transferase 82 U/L (15-37); Blood Urea Nitrogen 24.0 mg/dL (7.0-18.0); Calcium 9.4 mg/dL (8.5-10.1); Carbon Dioxide 34.2 mmol/L (21.0-32.0); Chloride 100 mmol/L (98-107); Estimated GFR (African America 48 (>=60 mL/min/1.73m^2); Estimated GFR (Non-African Ame 40 (>=60 mL/min/1.73m^2); Globulin 4.7 g/dL; Glucose 194 mg/dL (74-106); Potassium 5.6 mmol/L (3.5-5.1); Sodium 139 mmol/L (136-145); Total Protein 8.2 g/dL (6.4-8.2)
[2025-05-29 08:08] LABS: AFP, Serum, Tumor Marker 280.0 ng/mL (0.0-8.4)
== END 2025-05-28 13:25 | disposition home or self-care (01) ==
LOC: LAB 13:27
PROVIDERS: Visit Provider Internal Medicine
DX: B19.20 Unspecified viral hepatitis C without hepatic coma (principal)
CPT/HCPCS: 36415; 80053; 82105; 85025; 85610; 87522